=== PATIENT | male | born 1965 | race Two or more races ===

== ENCOUNTER 2016-07-15 18:55 | Emergency (ER) | payer SELFPAY ==
--- NOTE | 2016-07-15 19:20 | NUR ---
CALLED FOR TRIAGE; NOT IN EITHER LOBBY. WILL CALL BACK LATER
--- NOTE | 2016-07-15 20:27 | NUR ---
CALLED AGAIN; INFORMED PT LEFT
== END 2016-07-15 20:28 | disposition left against medical advice (07) ==
LOC: ER 18:58
DX: Z53.21 Procedure and treatment not carried out due to patient leaving prior to being seen by health care provider (principal)